=== PATIENT | male | born 1995 | race Caucasian/White ===

== ENCOUNTER 2020-08-24 00:42 | Emergency (ER) | payer OTHER ==
[~2020-08-24] VITALS: Ht 185.4 cm; Wt 69.9 kg
[2020-08-24 00:48] VITALS: Ht 185.4 cm; Wt 69.9 kg
[2020-08-24 01:00] VITALS: BP 128/93
== END 2020-08-24 01:00 ==
LOC: ED 00:42
DX: Z02.89 Encounter for other administrative examinations (principal)